=== PATIENT | male | born 1975 | race Caucasian/White ===

== ENCOUNTER 2017-01-11 14:50 | Emergency (ER) | payer OTHER ==
[2017-01-11 14:58] VITALS: BP 135/78
--- NOTE | 2017-01-11 16:53 | ERNOTE ---
Medical Problem HPI - Narrative Date of Service: 01/11/17 - General Chief Complaint: Laceration Time Seen by Provider: 01/11/17 16:11 Source: patient Exam Limitations: no limitations - Immun/Allergies/Home Medications Immunizations: IMMUNIZATION HX Immunizations Up to Date Yes History of Influenza Vaccine No Allergies/Adverse Reactions: Allergies No Known Allergies Allergy (Verified 01/11/17 14:58) Home Medications: HOME MEDICATIONS NK [No Home Medication] 01/11/17 [Last Taken Unknown] - History of Present History Narrative: Pt. comes in with changing stories of laceration on R dorsal pinky finger that occurred either yesterday or just before arrival. Pt. states that he cut his finger on metal on his car while working on it. Pt. unable to tell me what he was doing when he cut his finger. Pt. denies any numbness or tingling. Review of Systems - Review of Systems Constitutional: Present: no symptoms reported. Absent: fever, chills, weakness , fatigue, malaise, weight loss EYE: Present: no symptoms reported ENT: Present: no symptoms reported Respiratory: Present: no symptoms reported. Absent: shortness of breath, cough , wheezing Cardiology: Present: no symptoms reported. Absent: chest pain, palpitations, edema Gastrointestinal/Abdominal: Present: no symptoms reported Genitourinary: Present: no symptoms reported Musculoskeletal: Present: no symptoms reported. Absent: back pain, joint pain Skin: Present: other - laceration 1cm dorsal R fifth finger. Absent: rash, change in color, change in hair/nails Neurological: Present: no symptoms reported. Absent: headache, dizziness/light- headedness, numbness, tingling Endocrine: Present: no symptoms reported Hematologic/Lymphatic: Present: no symptoms reported All Other Systems: All systems neg except as marked - Patient's Past Medical History Patient History - Medical: No pertinent hx Patient History - Cardiac/Respiratory: No pertinent hx Patient History - Cancer: No Hx of Cancer Patient History - Surgical Procedures: Other - Social History Living Situations: home Psych History: Hx of Anxiety, Hx of Depression Smoking Status: Current every day smoker Do you dip or chew tobacco: No Alcohol Use: rarely Drug Use: none - Immunizations Immunizations Up to Date: Yes History of Influenza Vaccine: No Physical Exam - Physical Exam General Appearance: Present: wd/wn, alert, no apparent distress Eye Exam: Normal inspection: bilateral, PERRL: bilateral, EOMI: bilateral Ears, Nose, Throat: Present: normal ENT inspection, normal pharynx Neck: Present: normal inspection, nontender. Absent: lymphadenopathy (R), lymphadenopathy (L) Respiratory: Present: no respiratory distress, normal breath sounds, no accessory muscle use, chest nontender, lungs clear Cardiovascular/Chest: Present: regular rate, rhythm, no murmur, normal peripheral pulses Gastrointestinal/Abdominal: Present: normal bowel sounds, nontender, nondistended, soft, no organomegaly Back Exam: Present: normal inspection, normal range of motion, no CVA tenderness , no vertebral tenderness Extremity Exam: Present: normal range of motion, no edema Neurological Exam: Present: alert, oriented, normal mood/affect, no motor/ sensory deficits Skin Exam: Present: normal color, warm/dry, other - laceration 1cm dorsal R fifth finger. Absent: pallor, skin rash ED Progress - Date and Time Seen: Date and Time: 01/11/17 16:21 Educated pt. that if his injury happened yesterday and not this afternoon that pt. could have complications but he still insists on the sutures. - Vital Signs Patient's Vital Signs:: I have reviewed the patient's vital signs. Vital Signs: Vital Signs 01/11/17 14:54 Temperature 36.3 C L Pulse Rate 66 Respiratory 16 Rate Blood Pressure 135/78 O2 Sat by Pulse 96 Oximetry - Progress/Reassessment Chief Complaint: Laceration Procedures Right Medial Dorsal Finger 5th Digit Anesthesia: 1% Lidocaine, Digital Block I & D Prep: betadine prep, sterile drapes applied, sterile dressing applied Length of Repair/Wound (cm): 1 Wound's Depth/Shape: into subcutaneous, linear Wound Explored: clean, to base Wound Intervention: irrigated w/saline Distal NVT: neuro/vasc intact, no tendon injury Wound Repaired With: sutures Suture Size/Type: 6-0, nylon Number of Sutures: 3 Layer Closure: Simple Estimated blood loss (ml): 5 Wound Dressing: sterile dressing applied Complications: Pt anthony procedure well Departure - Departure Clinical Impression: Laceration Disposition: Home self-care Condition: Good Instructions: Laceration Care, Adult, [id number] Additional Instructions: Please return in 7-10 days for suture removal Referrals: Mary Knight MD [Primary Care Provider] -
== END 2017-01-11 16:57 | disposition home or self-care (01) ==
LOC: ER 14:50
PROC: 0JQJ0ZZ Repair Right Hand Subcutaneous Tissue and Fascia, Open Approach (ICD-10-PCS; principal; 2017-01-11)
DX: S61.216A Laceration without foreign body of right little finger without damage to nail, initial encounter (principal); W45.8XXA Other foreign body or object entering through skin, initial encounter